=== PATIENT | male | born 1955 | race Caucasian/White ===

== ENCOUNTER → 2018-03-14 07:55 | Outpatient (CLI) | payer OTHER, SELFPAY ==
[2017-04-07 10:45] VITALS: BMI 36.3
--- NOTE | 2018-03-14 08:00 | ECHOD_ITS ---
Reason For Study: Aortic valve replacement Procedure This was a 2D Doppler, Color Flow transthoracic echocardiogram. The exam was of fair technical quality due to diminished acoustic windows. The study was technically difficult. Exam performed in department. Left Ventricle Normal LV size. Left ventricular systolic function is normal. The estimated ejection fraction is 60 %. No evidence for diastolic dysfunction. No regional wall motion abnormalities noted. Right Ventricle Normal RV size. Normal systolic function. Atria Normal left atrium. Normal right atrium. No doppler evidence for ASD. Mitral Valve There is no mitral annular calcification. Normal mitral valve. Trivial mitral valve insufficiency. Tricuspid Valve Normal tricuspid valve. Trivial tricuspid valve insufficiency. Unable to estimate RV systolic pressure/pulmonary artery pressure due to technically difficult study. Aortic Valve Stable appearing bioprosthetic aortic valve apparatus. Pulmonic Valve The pulmonic valve is not well visualized. Trivial pulmonic valve insufficiency. Great Vessels Aortic root repair. Pericardium/Pleural No pericardial effusion. MMode/2D Measurements & Calculations LVIDd: 5.3 cm IVSd: 1.0 cm LVOT diam: 2.2 cm LVIDs: 3.3 cm LVPWd: 1.2 cm LVOT area: 3.9 cm2 RVDd: 3.3 cm FS: 36.8 % Ao root diam: 3.5 cm LAV(MOD-bp): 66.4 ml EDV(MOD-sp4): 133.3 ml LAV(MOD-bp) Indexed: 27.9 ml/m2 ESV(MOD-sp4): 43.8 ml LAV(MOD-sp2): 75.3 ml EF(MOD-sp4): 67.1 % LAV(MOD-sp4): 57.2 ml EDV(MOD-sp2): 74.1 ml SV(MOD-sp4): 89.4 ml SV(MOD-sp2): 45.6 ml EF(MOD-sp2): 61.6 % LA A4 area: 19.4 cm2 LA dimension(2D): 4.2 cm RA A4 area: 16.2 cm2 Doppler Measurements & Calculations MV E max travis: 62.0 cm/sec Lat Peak E' Traivs: 6.1 cm/sec Med Peak E' Travis: 6.3 cm/sec MV A max travis: 94.5 cm/sec E/E' lat: 10.2 E/E' med: 9.8 MV E/A: 0.66 Ao V2 max: 280.5 cm/sec LV V1 max: 128.7 cm/sec SV(LVOT): 119.7 ml Ao max P.5 mmHg LV V1 max P.6 mmHg Ao V2 mean: 180.3 cm/sec LV V1 mean P.6 mmHg Ao mean P.9 mmHg LV V1 mean: 89.4 cm/sec Ao V2 VTI: 63.2 cm LV V1 VTI: 30.7 cm HUBERT(I,D): 1.9 cm2 HUBERT(V,D): 1.8 cm2 PA V2 max: 117.3 cm/sec Interpretation Summary The study was technically difficult. Left ventricular systolic function is normal. The estimated ejection fraction is 60 %. Trivial mitral valve insufficiency. Trivial tricuspid valve insufficiency. Stable appearing bioprosthetic aortic valve apparatus. Trivial pulmonic valve insufficiency. Aortic root repair. Unable to estimate RV systolic pressure/pulmonary artery pressure due to technically difficult study. No evidence for diastolic dysfunction. Ordering Physician: Bret Steele Referring Physician: Ramon Alvarez Performed By: Bree Mayes RDCS
--- OUTSIDE RECORDS SUMMARY | 2018-06-15 18:15 | XMS RPT_ITS ---
:1955 Author Organization [facility] Care Team Providers Name Role Phone Ramon Alvarez Attending Unavailable Ivette, Bret Referring Unavailable MoodispaRamon huffman Attending Unavailable Ivette, Bret Referring Unavailable Ivette, Bret Primary Care Unavailable Ramon Alvarez Attending Unavailable Moodispaarmida, Ramon Referring Unavailable Ivette, Bret Primary Care Unavailable Ramon Alvarez Consulting Unavailable Ramon Alvarez Attending Unavailable Ramon Alvarez Referring Unavailable Ivette, Bret Primary Care Unavailable PROBLEMS PROBLEMS DATE TYPE CONDITION / CODE ATTENDING STATUS SOURCE 03/21/2018 Unknown I35.2 - Nonrheumatic Ramon Alvarez aortic (valve) Community stenosis with Hospital insufficiency / Repository I35.2(ICD-10) 03/14/2018 Unknown Z95.2 - Presence of Ramon Alvarez prosthetic heart Community valve / Hospital Z95.2(ICD-10) Repository 03/14/2018 Unknown I49.3 - Ventricular MoodRamon hatch premature Community depolarization / Hospital I49.3(ICD-10) Repository 03/14/2018 Unknown R00.2 - Palpitations Ramon Alvarez / R00.2(ICD-10) [facility] Repository PROCEDURES PROCEDURES No Procedure Records FoundRESULTS RESULTS ECHOCARDIOGRAM COMPLETE Observed: 03/21/2018 Status: F Source: [place] 10:30 AM [facility] REPOSITORY [facility] [place] [address] Echo Complete 03/14/18801 MR#: [id number] Acct: [id number] Name: IRVIN WEEKS Rep #: [id number] : 1955 62 From: Ramon Alvarez MD Attending Dr: Ramon Alvarez MD Status: REG CLI Ordering Dr: Ramon Alvarez MD Date: 03/14/18 Location: [facility] Sex: M C Admitted: Reason For Study: Aortic valve replacement Procedure This was a 2D Doppler, Color Flow transthoracic echocardiogram. The exam was of fair technical quality due to diminished acoustic windows. The study was technically difficult. Exam performed in department. Left Ventricle Normal LV size. Left ventricular systolic function is normal. The estimated ejection fraction is 60 %. No evidence for diastolic dysfunction. No regional wall motion abnormalities noted. Right Ventricle Normal RV size. Normal systolic function. Atria Normal left atrium. Normal right atrium. No doppler evidence for ASD. Mitral Valve There is no mitral annular calcification. Normal mitral valve. Trivial mitral valve insufficiency. Tricuspid Valve Normal tricuspid valve. Trivial tricuspid valve insufficiency. Unable to estimate RV systolic pressure/pulmonary artery pressure due to technically difficult study. Aortic Valve Stable appearing bioprosthetic aortic valve apparatus. Pulmonic Valve The pulmonic valve is not well visualized. Trivial pulmonic valve insufficiency. Great Vessels Aortic root repair. Pericardium/Pleural No pericardial effusion. MMode/2D Measurements AND Calculations LVIDd: 5.3 cm IVSd: 1.0 cm LVOT diam: 2.2 cm LVIDs: 3.3 cm LVPWd: 1.2 cm LVOT area: 3.9 cm2 RVDd: 3.3 cm FS: 36.8 % Ao root diam: 3.5 cm LAV(MOD-bp): 66.4 ml EDV(MOD-sp4): 133.3 ml LAV(MOD-bp) Indexed: 27.9 ml/m2 ESV(MOD-sp4): 43.8 ml LAV(MOD-sp2): 75.3 ml EF(MOD-sp4): 67.1 % LAV(MOD-sp4): 57.2 ml EDV(MOD-sp2): 74.1 ml SV(MOD-sp4): 89.4 ml SV(MOD-sp2): 45.6 ml EF(MOD-sp2): 61.6 % LA A4 area: 19.4 cm2 LA dimension(2D): 4.2 cm RA A4 area: 16.2 cm2 Doppler Measurements AND Calculations MV E max travis: 62.0 cm/sec Lat Peak E' Travis: 6.1 cm/sec Med Peak E' Travis: 6.3 cm/sec MV A max travis: 94.5 cm/sec E/E' lat: 10.2 E/E' med: 9.8 MV E/A: 0.66 Ao V2 max: 280.5 cm/sec LV V1 max: 128.7 cm/sec SV(LVOT): 119.7 ml Ao max P.5 mmHg LV V1 max P.6 mmHg Ao V2 mean: 180.3 cm/sec LV V1 mean P.6 mmHg Ao mean P.9 mmHg LV V1 mean: 89.4 cm/sec Ao V2 VTI: 63.2 cm LV V1 VTI: 30.7 cm HUBERT(I,D): 1.9 cm2 HUBERT(V,D): 1.8 cm2 PA V2 max: 117.3 cm/sec Interpretation Summary The study was technically difficult. Left ventricular systolic function is normal. The estimated ejection fraction is 60 %. Trivial mitral valve insufficiency. Trivial tricuspid valve insufficiency. Stable appearing bioprosthetic aortic valve apparatus. Trivial pulmonic valve insufficiency. Aortic root repair. Unable to estimate RV systolic pressure/pulmonary artery pressure due to technically difficult study. No evidence for diastolic dysfunction. Ordering Physician: Bret Steele Referring Physician: Ramon Alvarez Performed By: Bree Mayes RDCS 03/21/181028 Date Ramon Alvarez MD CC: DO Bret Steele; Ramon Alvarez MD Date Dictated: 03/14/18801 Date Transcribed: 03/21/18 102 Automotive Service Technician: Signed CARDIOLOGY VISIT Observed: 04/21/2017 Status: F Source: [place] REPORT 12:13 PM [facility] REPOSITORY [place] [facility] [address] [place] [address] OFFICE VISIT Date of Service: 04/07/17 MR#: [id number] Acct: [id number] Name: RIVIN WEEKS Rep #: [id number] : 1955 Provider: Ramon Alvarez MD Age/Sex: 61/M Location: [facility] Status: Signed HPI 1 Y FU: Details: IRVIN WEEKS, is a 61 M who presents to the office today for outpatient cardiovascular follow-up of his history of underlying aortic valve disease with bicuspid aortic valve status post aortic valve replacement, aortic root replacement/repair, postoperative atrial fibrillation/ventricular tachycardia, sinus bradycardia, and hyperlipidemia. Since his last outpatient cardiovascular visit of 03/02/2016 he states overall he has been doing well. 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 He continues to travel, with his spouse, within the [place] and outside the country without any difficulties. He has not complained of any symptoms of chest discomfort, difficulty breathing, palpitations, near syncope or syncope, or lower extremity peripheral pitting edema. There has been no unexplained fever, chills, or night sweats. He states he had his lipid labs performed recently under your direction. The results are unavailable for review at this time. He did have a transthoracic echocardiogram performed recently. His left ventricle was thought to be normal with an LVEF of 60%, trivial MR/TR, stable appearing bioprosthetic aortic valve apparatus, aortic root repair, estimated right ventricular systolic pressure 27 mmHg, and decreased diastolic compliance. Compared to his previous studies there were no significant changes. He has not required any other additional testing. As you recall his previous exercise tolerance test/imaging study was performed on 09/19/2009 at [facility]. At that time his myocardial perfusion studies demonstrated changes in the basal inferior segment noted predominantly in the short axis view which may be considered suggestive but not diagnostic of stress-induced myocardial ischemia versus an element of shifting soft tissue attenuation/artifact with a gated Cardiolite study demonstrating an LVEF of 52%. His previous diagnostic cardiac catheterization was performed at [facility] on 09/25/2009. At that time he had normal coronary angiography, normal left ventricular size and contractility, the LVEF was 60%, he had mild aortic valve stenosis/insufficiency, and he had an ascending aorta appearing dilated and aneurysmal. He did have a chest CT scan performed on 10/11/2009. Is a sending aorta measured a transverse diameter of 5.[address] surgery at the [facility] on 02/05/2010. At that time he had a minimally invasive replacement of the aortic valve with a pericardial valve and replacement of the ascending aorta. Intake Vital Signs04/07/17 Height 6 ft 04/07/17 Weight: 268 lb 6 oz 04/07/17 Body Mass Index (BMI) 36.3 04/07/17 Blood Pressure 118/78 Intake Visit Reasons: 1 Y FU Allergies penicillin G Allergy (Severe, Verified 04/05/17 15:16) Anaphylaxis metoprolol Adverse Reaction (Unknown, Verified 04/05/17 15:05) unknown bee stings Allergy (Severe, Uncoded 04/05/17 15:16) Anaphylaxis Medications aspirin 325 mg tablet 325 mg PO QDAY 04/05/17 [History Confirmed 04/07/17] multivitamin tablet 1 tab PO QDAY 04/05/17 [History Confirmed 04/07/17] clindamycin HCl 300 mg capsule 300 mg PO .COMPLEX #6 cap 04/07/17 [Rx Confirmed 04/07/17] nebivolol 2.5 mg tablet 2.5 mg PO QDAY #90 tab 04/07/17 [Rx Confirmed 04/07/17] PFSH Medical History Nonrheumatic aortic (valve) stenosis with insufficiency (Acute) Premature ventricular contraction (Acute) Palpitations (Acute) Family history of ischemic heart disease (Acute) Long-term use of high-risk medication (Acute) Aneurysm of other specified artery (Acute) Hyperlipidemia (Chronic) Surgical History H/O aortic valve replacement (Resolved 01/2010) History of aortic aneurysm repair (Resolved 01/2010) History of tonsillectomy (Resolved Unknown) Family History Father CAD (coronary artery disease) Hx of CABG Hypertension Diabetes Mother Hypertension Diabetes CAD (coronary artery disease) Hx of CABG Sister Hypertension Diabetes Social History Smoking Status: Never smoker alcohol intake: current substance use type: does not use ROS Const Const: Negative for fatigue, weakness, weight gain, weight loss, frequent falls or excessive sweating Eyes Eyes: Negative for change in vision, blurry vision or transient loss of vision ENT ENT: Negative for dizziness, Negative for balance problems Cardio Chest Pain: No Palpitations: Positive for No Edema: None Muscle aches with walking: None Additional Details: Patient reports that he has been well. Resp Respiratory: Negative for SOB with activity or SOB at rest GI GI: Negative vomiting or vomiting blood/hematemesis : Negative for hematuria Musc Musc: Negative for balance problems, muscle aches/ myalgia, muscle weakness or joint pain Skin Skin: Negative non-healing lesions or rash Neuro Neuro: Negative for weakness, Negative for blurry vision, Negative for dizziness, Negative for lightheadedness, Negative for frequent falls, Negative for orthostatic symptoms Federico Hematologic/Lymphatic: Negative for easy bleeding Endo Endo: Negative for fatigue or excessive sweating Psych Psych: Negative for anxiety or depression Allergy Allergy/Immunology: Negative for hives, Negative for rash Cardiology Exam Const Appearance: cooperative, healthy appearing, comfortable, no acute distress, well developed and well groomed Nutritional Appearance: average body habitus, well nourished and overweight Orientation: alert, awake and oriented x3 Head Head: normal to inspection, normocephalic and atraumatic Ears: hearing grossly normal bilaterally Nose: external nose normal Face and Sinus: face symmetric Mouth: oral mucosae normal Teeth and gingiva: dentition normal Eyes General: appearance normal, both eyes and all related structures Eyelids: eyelids normal Conjunctivae: conjunctivae normal Pupils: PERRL EOM: EOM intact bilaterally Neck Neck: normal visual inspection and full ROM Carotids: normal carotid upstroke Chest Chest inspection: normal inspection of the chest and symmetric chest movement Auscultation: Bilateral: Clear to Auscultation Cardio Palpation: normal PMI Rate: regular rate Rhythm: regular rhythm Heart sounds: S1 normal and S2 normal Murmur: Grade 2/6, harsh, mid systolic, LLSB and LVOT GI GI: normal to inspection, soft, no hepatosplenomegaly and bowel sounds present Neuro General: alert, awake and oriented x3 Skin Skin: no rashes or lesions noted Extremities Pulses: Normal: Right Radial Pulse, Left Radial Pulse Lower Extremity Edema: None: Bilateral Psych Psychological: normal affect Assessment AND Plan 1. Nonrheumatic aortic (valve) stenosis with insufficiency I35.2 Plan At the present time he appears to be doing well with his bioprosthetic aortic valve apparatus. He has no concerning symptoms or adverse events. He will continue [employer] antibiotic prophylaxis. 2. H/O aortic valve replacement Z95.2 Plan Again his bioprosthetic aortic valve appears to be stable at this time. He will continue to be followed by history, exam, and echocardiogram in the future. In the meantime he will continue his [employer] antibiotic prophylaxis. Orders Orders: 3. S/P ascending aortic aneurysm repair Z98.890; Z86.79 Plan Again he is status post ascending aortic aneurysm repair. Based upon his recent transthoracic echocardiogram this appeared to be stable. 4. Premature ventricular beat I49.3 Plan He does have a history of PACs and PVCs. He appears to be without any obvious symptoms at this time. He will continue to monitor for any concerns. 5. Hyperlipidemia E78.5 Plan He states that they lipid profile was performed recently. A copy is unavailable for review. He will attempt to bring us a copy for continuity of care purposes. 6. Long-term use of high-risk medication Z79.899 Plan He is on medical management with respect to his [employer] antibiotic prophylaxis and concerns of his cardiovascular disease. He will continue his current medications. There are being renewed for him today. Plan Detail Other Medications New: Additional Comments Otherwise he will be scheduled for an outpatient visit in approximately 1 year unless needed sooner. He will go up with you in the interim as his primary care physician. The above was discussed with him. He was agreeable to this approach. Thank you for allowing me to participate in the care of your patient. Please don't hesitate to call if any issues arise. This note was generated using a voice recognition system and there may be incorrect words, spelling or punctuation that were not noted when reviewing the office note prior to saving. Follow Up 1 Year (PFM) 04/20/17 0853 <Electronically signed by Ramon Alvarez MD> Date Ramon Alvarez MD Cosigner Signature: Date (if applicable) CC: DO Queen Ivette ALLERGIES ALLERGIES DATE TYPE / CODE NAME / CODE REACTION SEVERITY SOURCE Drug metoprolol/F006 Unknown Unknown [place] [facility] Allergy/404502450( 536429(RXNORM) [facility] SNOMED CT) Hospital Repository Drug penicillin Anaphylaxis SV [place] [facility] Allergy/957821428( G/[id number](RX Community SNOMED CT) NORM) Hospital Repository Miscellaneous bee stings Anaphylaxis SV [place] 8 [facility] ENCOUNTERS ENCOUNTERS ADMIT/DISCHARGE ACCOUNT ADMITTING ENCOUNTER LOCATION SOURCE NUMBER CLASS 04/04/2018 [id number] Ambulatory BMSBuilding:B [place] 9 MS.[facility] Repository 03/14/2018 [id number] Ambulatory BMSBuilding:B [place] [facility] MS.CF.[facility] Repository 03/14/2018 [id number] Ambulatory [place] [facility] Hospital ing:[facility] Repository 04/07/2017/ [id number] Ambulatory BMSBuilding:B [place] 8 6 MS.[facility] Repository PAYERS PAYERS ENCOUNTER GUARANTOR PAYER SUBSCRIBER SOURCE 04/04/2018 IRVIN [id number] Primary IRVIN CHAMBERLIAN: [place] SHEPARD, Insurance:[employer]AREPol [id number] [facility] [address]Gcc: icy Number: [facility] [id number] Repository () Date:[id number] [address], [place] [address]XF: 04/04/2018 Secondary NOT GIVENUNK [place] Insurance:SELF PAY [facility] Number: Effective Repository Date:2017-04-07 03/14/2018 IRVIN [id number] Primary IRVIN ELLISB: [place] SHEPARD, Insurance:[place]ARE[place] [id number] [address]Rta: icy Number: Hospital [id number] Repository (HP) Date:[id number] [facility] [address] [address]TP: 03/14/2018 Secondary NOT GIVENUNK [place] Insurance:SELF PAY [facility] Number: Effective Repository Date:2018-03-14 03/14/2018 IRVIN Dong [id number] Primary IRVIN Dong RHONDAB: [place] SHEPARD, Insurance:[place]ARE[place] [id number] [address]Gfd: icy Number: Hospital [id number] Repository (HP) Date:[id number] [facility] [address] [place] [id number]: 03/14/2018 Secondary NOT GIVENUNK [place] Insurance:SELF PAY [facility] Number: Effective Repository Date:2018-01-07 04/07/2017 IRVIN [id number] Primary IRVIN Dong RHONDAB: [place] SHEPARD, Insurance:[place]ARE[place] [id number] [address]Vod: icy Number: Hospital [id number] Repository (HP) Date:1681-44-93AT [facility] [address] [place] [id number]: 04/07/2017 Secondary NOT GIVENUNK [place] Insurance:SELF PAY [facility] Number: Effective Repository Date:2017-03-06
== END ==
PROVIDERS: Family Provider Family Medicine; PCP Family Medicine; Referring Provider Internal Medicine Cardiovascular Disease; Visit Provider Internal Medicine Cardiovascular Disease
DX: I35.2 Nonrheumatic aortic (valve) stenosis with insufficiency (principal); I49.3 Ventricular premature depolarization; R00.2 Palpitations; Z95.2 Presence of prosthetic heart valve
CPT/HCPCS: 93306

== ENCOUNTER → 2019-03-14 07:48 | Outpatient (CLI) | payer MEDICARE, OTHER, SELFPAY ==
[2018-05-23 09:15] VITALS: BMI 37.0
--- NOTE | 2019-03-14 07:49 | ECHOCS_ITS ---
Reason For Study: VALVE REPLACEMENT EVAL Procedure This was a 2D Doppler, Color Flow transthoracic echocardiogram. The study was technically difficult. Contrast injection was performed. Exam performed in department. Left Ventricle Normal LV size. Left ventricular systolic function is normal. The estimated ejection fraction is 65 %. No evidence for diastolic dysfunction. No regional wall motion abnormalities noted. Right Ventricle Normal RV size. Normal systolic function. Atria Normal left atrium. Normal right atrium. No doppler evidence for ASD. Mitral Valve There is no mitral annular calcification. Normal mitral valve. Trivial mitral valve insufficiency. Tricuspid Valve Normal tricuspid valve. Trivial tricuspid valve insufficiency. Unable to estimate RV systolic pressure/pulmonary artery pressure due to technically difficult study. Aortic Valve Stable appearing bioprosthetic aortic valve apparatus. Pulmonic Valve The pulmonic valve is not well visualized. Great Vessels Aortic root repair. Pericardium/Pleural No pericardial effusion. Medication 22 gauge I.V. with prn adaptor inserted into right arm. Diluted definity 8ml given slow IV push to enhance endocardial definition. MMode/2D Measurements & Calculations LVIDd: 5.3 cm IVSd: 1.4 cm LVOT diam: 2.2 cm LVIDs: 3.5 cm LVPWd: 1.1 cm RVDd: 3.6 cm FS: 34.5 % LVOT area: 3.8 cm2 Ao root diam: 3.4 cm LAV(MOD-bp): 48.2 ml LVAd ap4: 37.0 cm2 LAV(MOD-bp) Indexed: 20.2 ml/m2 EDV(MOD-sp4): 134.5 ml LAV(MOD-sp2): 48.6 ml EDV(sp4-el): 134.1 ml LAV(MOD-sp4): 46.9 ml LVAs ap4: 19.4 cm2 ESV(MOD-sp4): 48.5 ml ESV(sp4-el): 51.0 ml EF(MOD-sp4): 63.9 % EF(sp4-el): 62.0 % SV(MOD-sp4): 86.0 ml SV(sp4-el): 83.1 ml LA A4 area: 17.8 cm2 LA dimension(2D): 4.8 cm RA A4 area: 19.7 cm2 Time Measurements MV dec time: 0.41 sec Doppler Measurements & Calculations MV E max travis: 65.2 cm/sec Lat Peak E' Travis: 10.2 cm/sec Med Peak E' Travis: 6.9 cm/sec MV A max travis: 101.4 cm/sec E/E' lat: 6.4 E/E' med: 9.5 MV E/A: 0.64 Ao V2 max: 330.2 cm/sec LV V1 max: 96.8 cm/sec SV(LVOT): 91.9 ml Ao max P.7 mmHg LV V1 max P.8 mmHg Ao V2 mean: 224.8 cm/sec LV V1 mean P.9 mmHg Ao mean P.3 mmHg LV V1 mean: 64.4 cm/sec Ao V2 VTI: 71.8 cm LV V1 VTI: 23.9 cm HUBERT(I,D): 1.3 cm2 HUBERT(V,D): 1.1 cm2 PA V2 max: 146.1 cm/sec Interpretation Summary The study was technically difficult. Contrast injection was performed. Left ventricular systolic function is normal. The estimated ejection fraction is 65 %. Trivial mitral valve insufficiency. Trivial tricuspid valve insufficiency. Stable appearing bioprosthetic aortic valve apparatus. Aortic root repair. Unable to estimate RV systolic pressure/pulmonary artery pressure due to technically difficult study. No evidence for diastolic dysfunction. Ordering Physician: Ramon Alvarez Referring Physician: MILAN THEODORE Performed By: Siobhan Rodriguez RDCS
== END ==
PROVIDERS: Family Provider Family Medicine; PCP Family Medicine; Referring Provider Internal Medicine Cardiovascular Disease; Visit Provider Internal Medicine Cardiovascular Disease
DX: Z95.3 Presence of xenogenic heart valve (principal); Z95.828 Presence of other vascular implants and grafts
CPT/HCPCS: 93306; Q9957; A4216; C8929

== ENCOUNTER → 2020-03-04 07:45 | Outpatient (CLI) | payer MEDICARE, OTHER, SELFPAY ==
[2019-05-29 10:45] VITALS: BMI 38.2
--- NOTE | 2020-03-04 07:47 | ECHOD_ITS ---
Reason For Study: Murmur Procedure This was a 2D Doppler, Color Flow transthoracic echocardiogram. The study was technically difficult. Contrast injection was performed. Exam performed in department. Left Ventricle Normal LV size. Left ventricular systolic function is normal. The estimated ejection fraction is 60 %. No evidence for diastolic dysfunction. No regional wall motion abnormalities noted. Right Ventricle Normal RV size. Normal systolic function. Atria Normal left atrium. Normal right atrium. No doppler evidence for ASD. Mitral Valve There is no mitral annular calcification. Normal mitral valve. Trivial mitral valve insufficiency. Tricuspid Valve Normal tricuspid valve. Trivial tricuspid valve insufficiency. Right ventricular systolic pressure estimated to be 28 mmHg. Aortic Valve Mild aortic stenosis. Stable appearing bioprosthetic aortic valve apparatus. Pulmonic Valve The pulmonic valve is not well visualized. Great Vessels Aortic root repair. Pericardium/Pleural No pericardial effusion. Medication 22 gauge I.V. with prn adaptor inserted into right arm. Diluted definity 3ml given slow IV push to enhance endocardial definition. MMode/2D Measurements & Calculations LVIDd: 5.5 cm IVSd: 1.1 cm LVOT diam: 2.2 cm LVIDs: 3.6 cm LVPWd: 1.2 cm FS: 35.7 % LVOT area: 3.7 cm2 Ao root diam: 3.7 cm LAV(MOD-bp): 62.5 ml LA A4 area: 20.8 cm2 LA dimension: 4.5 cm LAV(MOD-bp) Indexed: 26.2 ml/m2 LAV(MOD-sp2): 65.6 ml LAV(MOD-sp4): 57.0 ml RA A4 area: 20.2 cm2 Time Measurements MV dec time: 0.33 sec Doppler Measurements & Calculations MV E max travis: 80.9 cm/sec Lat Peak E' Travis: 7.9 cm/sec Med Peak E' Travis: 8.5 cm/sec MV A max travis: 92.4 cm/sec E/E' lat: 10.2 E/E' med: 9.5 MV E/A: 0.88 MV V2 max: 98.2 cm/sec MV P1/2t max travis: 84.7 cm/sec Ao V2 max: 306.1 cm/sec MV max P.9 mmHg MV P1/2t: 165.5 msec Ao max P.5 mmHg MV V2 mean: 54.2 cm/sec MV dec slope: 150.0 cm/sec2 Ao V2 mean: 197.7 cm/sec MV mean P.4 mmHg Ao mean P.5 mmHg MV V2 VTI: 39.7 cm MVA(P1/2t): 1.3 cm2 Ao V2 VTI: 71.8 cm MVA(VTI): 2.5 cm2 HUBERT(I,D): 1.4 cm2 HUBERT(V,D): 1.1 cm2 LV V1 max: 92.5 cm/sec SV(LVOT): 98.5 ml PA V2 max: 128.1 cm/sec LV V1 max P.4 mmHg LV V1 mean P.9 mmHg LV V1 mean: 62.4 cm/sec LV V1 VTI: 26.3 cm TR max travis: 247.9 cm/sec TR max P.6 mmHg Interpretation Summary The study was technically difficult. Contrast injection was performed. Left ventricular systolic function is normal. The estimated ejection fraction is 60 %. Trivial mitral valve insufficiency. Trivial tricuspid valve insufficiency. Stable appearing bioprosthetic aortic valve apparatus. Mild aortic stenosis. Aortic root repair. Right ventricular systolic pressure estimated to be 28 mmHg. No evidence for diastolic dysfunction. Ordering Physician: Ramon Alvarez Referring Physician: Bret Steele Performed By: Andrei Morrow RCS
== END ==
PROVIDERS: PCP Family Medicine; Referring Provider Internal Medicine Cardiovascular Disease; Visit Provider Internal Medicine Cardiovascular Disease
DX: R01.1 Cardiac murmur, unspecified (principal); Z95.3 Presence of xenogenic heart valve
CPT/HCPCS: 93306; Q9957; A4216; C8929

== ENCOUNTER 2020-05-30 07:31 | Outpatient (RCR) | payer MEDICARE, OTHER, SELFPAY ==
[2019-05-29 10:45] VITALS: BMI 38.2
[2020-05-30] MEDS: COVID-19 VACC, MRNA(PFIZER)/PF 30 MCG/0.3 ML SYRINGE IM (13:54)
[2020-06-20] MEDS: COVID-19 VACC, MRNA(PFIZER)/PF 30 MCG/0.3 ML SYRINGE IM (13:24)
== END 2020-09-03 23:59 ==
LOC: IMMUN 07:31
PROVIDERS: PCP Family Medicine; Referring Provider Family Medicine; Visit Provider Family Medicine
DX: Z23 Encounter for immunization (principal)
CPT/HCPCS: 0001A; 0002A; 91300

== ENCOUNTER → 2021-03-04 12:50 | Outpatient (CLI) | payer MEDICARE, OTHER, SELFPAY ==
--- NOTE | 2021-03-04 12:53 | ECHOD_ITS ---
Reason For Study: AVR Procedure This was a 2D Doppler, Color Flow transthoracic echocardiogram. The study was technically difficult. Exam performed in department. Left Ventricle Normal LV size. Left ventricular systolic function is normal. The estimated ejection fraction is 60 %. No evidence for diastolic dysfunction. No regional wall motion abnormalities noted. Right Ventricle Normal RV size. Normal systolic function. Atria Normal left atrium. Normal right atrium. No doppler evidence for ASD. Mitral Valve There is no mitral annular calcification. Normal mitral valve. Trivial mitral valve insufficiency. Tricuspid Valve Normal tricuspid valve. Trivial tricuspid valve insufficiency. Unable to estimate RV systolic pressure/pulmonary artery pressure due to technically difficult study. Aortic Valve Mild aortic stenosis. Stable appearing bioprosthetic aortic valve apparatus. Trivial transvalvular insufficiency of the aortic valve. Pulmonic Valve The pulmonic valve is not well visualized. Great Vessels Normal sized aortic root. Pericardium/Pleural No pericardial effusion. MMode/2D Measurements & Calculations LVIDd: 5.1 cm IVSd: 1.3 cm LVOT diam: 2.2 cm LVIDs: 3.3 cm LVPWd: 1.1 cm LVOT area: 3.7 cm2 RVDd: 3.3 cm FS: 35.0 % Ao root diam: 3.2 cm LAV(MOD-bp): 60.0 ml LVAd ap4: 32.2 cm2 LAV(MOD-bp) Indexed: 26.1 ml/m2 LVLd ap4: 9.2 cm LAV(MOD-sp2): 66.7 ml EDV(MOD-sp4): 96.5 ml LAV(MOD-sp4): 51.1 ml EDV(sp4-el): 95.8 ml LVAs ap4: 17.9 cm2 LVLs ap4: 7.6 cm ESV(MOD-sp4): 37.8 ml ESV(sp4-el): 35.7 ml EF(MOD-sp4): 60.8 % EF(sp4-el): 62.7 % LVAd ap2: 25.1 cm2 SV(MOD-sp4): 58.7 ml SV(MOD-sp2): 37.5 ml LVLd ap2: 8.6 cm EDV(MOD-sp2): 62.3 ml EDV(sp2-el): 62.0 ml LVAs ap2: 14.0 cm2 LVLs ap2: 7.1 cm ESV(MOD-sp2): 24.8 ml ESV(sp2-el): 23.6 ml EF(MOD-sp2): 60.2 % SV(sp4-el): 60.1 ml LA dimension(2D): 4.5 cm LA A4 area: 19.0 cm2 RA A4 area: 16.5 cm2 Doppler Measurements & Calculations MV E max travis: 51.0 cm/sec Lat Peak E' Travis: 7.4 cm/sec Med Peak E' Travis: 6.6 cm/sec MV A max travis: 85.8 cm/sec E/E' lat: 6.9 E/E' med: 7.7 MV E/A: 0.60 Ao V2 max: 310.1 cm/sec LV V1 max: 126.2 cm/sec SV(LVOT): 106.2 ml Ao max P.5 mmHg LV V1 max P.4 mmHg Ao V2 mean: 204.5 cm/sec LV V1 mean P.6 mmHg Ao mean P.1 mmHg LV V1 mean: 88.8 cm/sec Ao V2 VTI: 64.8 cm LV V1 VTI: 29.1 cm HUBERT(I,D): 1.6 cm2 HUBERT(V,D): 1.5 cm2 PA V2 max: 109.6 cm/sec ECHO/Echo Complete Interpretation Summary The study was technically difficult. Left ventricular systolic function is normal. The estimated ejection fraction is 60 %. Trivial mitral valve insufficiency. Trivial tricuspid valve insufficiency. Stable appearing bioprosthetic aortic valve apparatus. Mild aortic stenosis. Trivial transvalvular insufficiency of the aortic valve. Unable to estimate RV systolic pressure/pulmonary artery pressure due to techni raeann difficult study. No evidence for diastolic dysfunction. Ordering Physician: Ramon Alvarez Referring Physician: Bret Steele Performed By: Bree Mayes RDCS
== END ==
PROVIDERS: PCP Family Medicine; Referring Provider Internal Medicine Cardiovascular Disease; Visit Provider Internal Medicine Cardiovascular Disease
DX: Z95.3 Presence of xenogenic heart valve (principal)
CPT/HCPCS: 93306

== ENCOUNTER → 2022-03-16 | Outpatient (CLI) | payer MEDICARE, OTHER, SELFPAY ==
--- NOTE | 2022-03-16 07:49 | ECHOD_ITS ---
Reason For Study: VALVE REPLACEMENT EVAL Procedure This was a 2D Doppler, Color Flow transthoracic echocardiogram. The study was technically difficult. Exam performed in department. Left Ventricle Normal LV size. Left ventricular systolic function is normal. The estimated ejection fraction is 60 %. Post operative septal motion. No evidence for diastolic dysfunction. Right Ventricle Normal RV size. Normal systolic function. Atria Borderline enlarged left atrium. Normal right atrium. No doppler evidence for ASD. Mitral Valve There is no mitral annular calcification. Normal mitral valve. Trivial mitral valve insufficiency. Tricuspid Valve Normal tricuspid valve. Trivial tricuspid valve insufficiency. Right ventricular systolic pressure estimated to be 24 mmHg. Aortic Valve Mild aortic stenosis. Trivial eccentric aortic valve insufficiency. Stable appearing bioprosthetic aortic valve apparatus. Pulmonic Valve The pulmonic valve is not well visualized. Great Vessels Aortic root repair. Pericardium/Pleural No pericardial effusion. MMode/2D Measurements & Calculations LVIDd: 5.8 cm IVSd: 1.2 cm LVOT diam: 2.2 cm LVIDs: 3.5 cm LVPWd: 0.88 cm LVOT area: 3.9 cm2 FS: 38.8 % Ao root diam: 3.9 cm LAV(MOD-sp4): 74.1 ml LVAd ap4: 28.3 cm2 LVLd ap4: 8.2 cm EDV(MOD-sp4): 84.8 ml EDV(sp4-el): 82.9 ml LVAs ap4: 17.4 cm2 LVLs ap4: 7.0 cm ESV(MOD-sp4): 40.9 ml ESV(sp4-el): 36.5 ml EF(MOD-sp4): 51.7 % EF(sp4-el): 56.0 % SV(MOD-sp4): 43.8 ml SV(sp4-el): 46.4 ml LA A4 area: 23.1 cm2 RA A4 area: 22.9 cm2 Time Measurements MV dec time: 0.26 sec Doppler Measurements & Calculations MV E max travis: 68.3 cm/sec Lat Peak E' Travis: 6.7 cm/sec Med Peak E' Travis: 6.3 cm/sec MV A max travis: 83.6 cm/sec E/E' lat: 10.2 E/E' med: 10.8 MV E/A: 0.82 MV V2 max: 87.7 cm/sec Ao V2 max: 297.8 cm/sec MV max P.1 mmHg MV dec slope: 259.1 cm/sec2 Ao max P.8 mmHg MV V2 mean: 50.1 cm/sec Ao V2 mean: 206.9 cm/sec MV mean P.2 mmHg Ao mean P.5 mmHg MV V2 VTI: 39.0 cm Ao V2 VTI: 70.7 cm AV (velocity ratio): 0.39 MVA(VTI): 2.8 cm2 HUBERT(I,D): 1.5 cm2 HUBERT(V,D): 1.3 cm2 LV V1 max: 100.8 cm/sec SV(LVOT): 108.9 ml PA V2 max: 115.6 cm/sec LV V1 max P.1 mmHg LV V1 mean P.7 mmHg LV V1 mean: 77.8 cm/sec LV V1 VTI: 27.7 cm TR max travis: 229.3 cm/sec TR max P.0 mmHg ECHO/Echo Complete Interpretation Summary The study was technically difficult. Left ventricular systolic function is normal. The estimated ejection fraction is 60 %. Post operative septal motion. Borderline enlarged left atrium. Trivial mitral valve insufficiency. Trivial tricuspid valve insufficiency. Stable appearing bioprosthetic aortic valve apparatus. Mild aortic stenosis. Trivial eccentric aortic valve insufficiency. Aortic root repair. Right ventricular systolic pressure estimated to be 24 mmHg. No evidence for diastolic dysfunction. Ordering Physician: Ramon Alvarez Performed By: Iveth Puente RCS
== END | disposition home or self-care (01) ==
LOC: CVS 07:49
PROVIDERS: PCP Family Medicine; Visit Provider Internal Medicine Cardiovascular Disease
DX: I10 Essential (primary) hypertension (principal); Z95.828 Presence of other vascular implants and grafts; Z95.3 Presence of xenogenic heart valve; Z79.899 Other long term (current) drug therapy
CPT/HCPCS: 93306

== ENCOUNTER → 2023-03-11 | Outpatient (CLI) | payer MEDICARE, OTHER, SELFPAY ==
--- NOTE | 2023-03-11 09:54 | ECHOD_ITS ---
Reason For Study: VALVE REPLACEMENT Procedure This was a 2D Doppler, Color Flow transthoracic echocardiogram. The study was technically difficult. Limited views were obtained. Exam performed in department. Left Ventricle Normal LV size. The estimated ejection fraction is 60 %. No evidence for diastolic dysfunction. No regional wall motion abnormalities noted. Right Ventricle Normal RV size. Normal systolic function. Atria Normal left atrium. Normal right atrium. No doppler evidence for ASD. Mitral Valve There is no mitral valve stenosis. No mitral valve insufficiency. Tricuspid Valve There is no tricuspid stenosis. Unable to estimate RV systolic pressure due to insufficient tricuspid regurgitant envelope. Trivial tricuspid valve insufficiency. Aortic Valve There is no aortic stenosis. No aortic valve insufficiency. Stable appearing bioprosthetic aortic valve apparatus. Pulmonic Valve There is no pulmonic valvular stenosis. No pulmonic valve insufficiency. Great Vessels Normal aortic root. Pericardium/Pleural No pericardial effusion. Medication 22 gauge I.V. with prn adaptor inserted into right arm. Diluted definity 2ml given slow IV push to enhance endocardial definition. MMode/2D Measurements & Calculations LVIDd: 5.2 cm IVSd: 1.4 cm LVOT diam: 2.3 cm LVIDs: 3.4 cm LVPWd: 1.2 cm FS: 33.9 % LVOT area: 4.3 cm2 LAV(MOD-bp): 74.5 ml LA A4 area: 21.7 cm2 LA dimension(2D): 4.9 cm LAV(MOD-bp) Indexed: 31.0 ml/m2 LAV(MOD-sp2): 84.4 ml LAV(MOD-sp4): 62.5 ml TAPSE: 2.4 cm RA A4 area: 17.1 cm2 Time Measurements MV dec time: 0.31 sec Doppler Measurements & Calculations MV E max travis: 65.4 cm/sec Lat Peak E' Travis: 6.6 cm/sec Med Peak E' Travis: 7.6 cm/sec MV A max travis: 78.8 cm/sec E/E' lat: 9.8 E/E' med: 8.6 MV E/A: 0.83 MV V2 max: 87.6 cm/sec MV dec slope: 219.0 cm/sec2 Ao V2 max: 300.4 cm/sec MV max P.1 mmHg Ao max P.1 mmHg MV V2 mean: 55.0 cm/sec Ao V2 mean: 190.7 cm/sec MV mean P.3 mmHg Ao mean P.5 mmHg MV V2 VTI: 31.7 cm Ao V2 VTI: 67.1 cm MVA(VTI): 5.0 cm2 AV (velocity ratio): 0.55 HUBERT(I,D): 2.4 cm2 HUBERT(V,D): 1.9 cm2 LV V1 max: 130.6 cm/sec SV(LVOT): 158.9 ml LV V1 max P.8 mmHg LV V1 mean P.4 mmHg LV V1 mean: 99.5 cm/sec LV V1 VTI: 36.9 cm ECHO/Echo Complete W/ Contrast Interpretation Summary The estimated ejection fraction is 60 %. No evidence for diastolic dysfunction. Ordering Physician: Ramon Alvarez Referring Physician: MILAN THEODORE Performed By: Iveth Puente RCS
== END | disposition home or self-care (01) ==
LOC: CVS 09:54
PROVIDERS: PCP Family Medicine; Visit Provider Internal Medicine Cardiovascular Disease
DX: I35.2 Nonrheumatic aortic (valve) stenosis with insufficiency (principal)
CPT/HCPCS: 93306; Q9957; A4216; C8929